=== PATIENT | male | born 1965 | race Caucasian/White ===

== ENCOUNTER 2018-03-20 18:14 | Emergency (ER) | payer BC, OTHER ==
[~2018-03-20] VITALS: Ht 170.2 cm; Wt 99.8 kg
[~2018-03-20 18:14] MED LIST: ASPIRIN; ATOR40TA PO; FLOMAX; LIPITOR; LISI5 PO; LISINOPRIL; MECL25 PO; OMEP20ER PO; ONDA4ODT MM; PROM25 PO
[2018-03-20 18:54] LABS: BASOPHILS ABSOLUTE AUTO 0.02 K/mm3 (0.00-0.23); BASOPHILS PERCENT AUTO 0 % (0-2); EOSINOPHILS PERCENT AUTO 0 % (0-6); Hematocrit 48.8 % (37.0-53.0); IMMATURE GRAN ABSOLUTE AUTO 0.03 K/mm3 (0.00-0.10); IMMATURE GRAN PERCENT AUTO 0 % (0-1); LYMPHOCYTES ABSOLUTE AUTO 1.17 K/mm3 (0.84-5.20); LYMPHOCYTES PERCENT AUTO 10 % (21-46); MONOCYTES ABSOLUTE AUTO 0.44 K/mm3 (0.16-1.47); MONOCYTES PERCENT AUTO 4 % (4-13); Mean Corpuscular HGB 30.3 pg (26.0-34.0); Mean Corpuscular HGB Conc 34.8 g/dL (31.5-36.5); Mean Corpuscular Volume 87 fL (80-100); Mean Platelet Volume 8.7 fL (9.1-12.4); NEUTROPHILS ABSOLUTE AUTO 10.23 K/mm3 (1.96-9.15); NEUTROPHILS PERCENT AUTO 86 % (41-73); Platelet Count 341 K/mm3 (150-400); RDW Standard Deviation 38.3 fL (35.1-46.3); Red Blood Cell Count 5.61 M/mm3 (4.30-5.90); White Blood Cell Count 11.89 K/mm3 (4.00-11.30)
[2018-03-20 19:29] LABS: Albumin, Blood 4.5 g/dL (3.4-5.0); Albumin/Globulin Ratio 1.1 (0.8-1.8); Bilirubin, Total 1.4 mg/dL (0.1-1.0); Bun/Creatinine Ratio 22.7 (12.0-20.0); Calcium, Blood 9.6 mg/dL (8.5-10.1); Creatinine, Blood 1.41 mg/dL (0.60-1.20); Globulin, Blood 4.1 g/dL (2.2-4.0); Potassium, Blood 4.6 mmol/L (3.5-5.5); Total Protein, Blood 8.6 g/dL (6.4-8.2)
[2018-03-20 19:32] LABS: Source, Urine Clean Catch
[2018-03-20 19:49] LABS: Appearance, Urine Hazy (Clear); Bilirubin, Urine Neg (Neg); Blood, Urine 1+ (Neg); Color, Urine Yellow (P-Yellow); Glucose Qualitative, Urine Neg (Neg); Ketones, Urine 2+ (Neg); Leukocyte Esterase, Urine 1+ (Neg); Nitrite, Urine Neg (Neg); Protein, Urine 2+ (Neg); Specific Gravity, Urine 1.025 (1.003-1.022); Urobilinogen, Urine NORM (Normal)
[2018-03-20 20:30] LABS: Amorphous Heavy (0-Heavy); Bacteria Not Seen /hpf; Red Blood Cells, Urine 50-100 /hpf (0-2); Squamous Epithelial Cells Not Seen /hpf (Few); White Blood Cells, Urine Not Seen /hpf (0-5)
[2018-03-20] MEDS ORDERED: Zofran Odt4 MG PO (21:16)
[2018-03-20] MEDS ORDERED: PHENERGAN25 MG PR (21:16)
== END 2018-03-20 21:41 | disposition home or self-care (01) ==
LOC: ER 18:14
PROVIDERS: Emergency Medicine
DX: R11.2 Nausea with vomiting, unspecified (principal); Z79.899 Other long term (current) drug therapy; K21.9 Gastro-esophageal reflux disease without esophagitis; F17.200 Nicotine dependence, unspecified, uncomplicated
CPT/HCPCS: 36415; 80053; 81001; 83690; 85025; 87086; 96361; 96374; 96375; 99283; J2405; J2550; J7030

== ENCOUNTER 2018-04-05 07:20 | Observation (INO) | payer BC, OTHER ==
[~2018-04-05] VITALS: Ht 170.2 cm; Wt 85.0 kg
[~2018-04-05 07:20] MED LIST changes: +PHENERGAN25 MG PR; +Zofran Odt4 MG PO
[2018-04-05 07:51] LABS: BASOPHILS ABSOLUTE AUTO 0.05 K/mm3 (0.00-0.23); BASOPHILS PERCENT AUTO 0 % (0-2); EOSINOPHILS PERCENT AUTO 0 % (0-6); Hematocrit 47.4 % (37.0-53.0); Hemoglobin 16.7 g/dL (13.5-17.5); IMMATURE GRAN ABSOLUTE AUTO 0.07 K/mm3 (0.00-0.10); IMMATURE GRAN PERCENT AUTO 1 % (0-1); LYMPHOCYTES ABSOLUTE AUTO 1.26 K/mm3 (0.84-5.20); LYMPHOCYTES PERCENT AUTO 8 % (21-46); MONOCYTES PERCENT AUTO 5 % (4-13); Mean Corpuscular HGB 30.8 pg (26.0-34.0); Mean Corpuscular HGB Conc 35.2 g/dL (31.5-36.5); Mean Corpuscular Volume 87 fL (80-100); Mean Platelet Volume 9.2 fL (9.1-12.4); NEUTROPHILS PERCENT AUTO 86 % (41-73); Platelet Count 295 K/mm3 (150-400); RDW Coefficient Variation 12.1 % (11.7-14.2); RDW Standard Deviation 38.6 fL (35.1-46.3); Red Blood Cell Count 5.43 M/mm3 (4.30-5.90); White Blood Cell Count 14.98 K/mm3 (4.00-11.30)
[2018-04-05 08:09] LABS: Alanine Aminotransfer (ALT/SGP 53 U/L (12-78); Albumin, Blood 4.4 g/dL (3.4-5.0); Alk Phos 83 U/L (50-136); Anion Gap 10 mmol/L (6-16); Aspartate Aminotrans (AST/SGOT 30 U/L (12-37); Bilirubin, Total 1.2 mg/dL (0.1-1.0); Blood Urea Nitrogen 21 mg/dL (8-24); CO2, Blood 25 mmol/L (21-32); Calcium, Blood 9.6 mg/dL (8.5-10.1); Chloride, Blood 105 mmol/L (98-108); Creatinine, Blood 1.31 mg/dL (0.60-1.20); Globulin, Blood 4.4 g/dL (2.2-4.0); Glomerular Filtration Rate >60 (60-); Glucose, Blood 136 mg/dL (70-99); Potassium, Blood 5.4 mmol/L (3.5-5.5); Sodium, Blood 140 mmol/L (136-145); Total Protein, Blood 8.8 g/dL (6.4-8.2)
[2018-04-05 09:58] LABS: U Amphetamine Screen Not Detected; U Barbituate Screen Not Detected; U Benzodiazapine Screen Not Detected; U Buprenorphine Screen Not Detected; U Cannabinoids Screen Not Detected; U Cocaine Screen Not Detected; U Methadone Screen Not Detected; U Methamphetamine Screen Not Detected; U Opiates Screen Not Detected; U Oxycodone Screen Not Detected; U Phencyclidine Screen Not Detected; U Propoxyphene Screen Not Detected
[2018-04-05 18:50] LABS: Source, Urine Voided
[2018-04-05 18:55] LABS: Bilirubin, Urine Neg (Neg); Blood, Urine 1+ (Neg); Glucose Qualitative, Urine Neg (Neg); Ketones, Urine Neg (Neg); Leukocyte Esterase, Urine Neg (Neg); Nitrite, Urine Neg (Neg); Protein, Urine Neg (Neg); Specific Gravity, Urine 1.025 (1.003-1.022); Urobilinogen, Urine NORM (Normal)
[2018-04-05 19:13] LABS: Appearance, Urine Clear (Clear); Color, Urine Yellow (P-Yellow)
[2018-04-05 19:14] LABS: Bacteria Not Seen /hpf; Red Blood Cells, Urine Not Seen /hpf (0-2); Squamous Epithelial Cells Not Seen /hpf (Few); White Blood Cells, Urine Not Seen /hpf (0-5)
[2018-04-06 05:02] LABS: Anion Gap 10 mmol/L (6-16); Blood Urea Nitrogen 21 mg/dL (8-24); Bun/Creatinine Ratio 17.9 (12.0-20.0); CO2, Blood 25 mmol/L (21-32); Calcium, Blood 8.7 mg/dL (8.5-10.1); Chloride, Blood 104 mmol/L (98-108); Creatinine, Blood 1.17 mg/dL (0.60-1.20); Glomerular Filtration Rate >60 (60-); Glucose, Blood 94 mg/dL (70-99); Potassium, Blood 3.9 mmol/L (3.5-5.5); Sodium, Blood 139 mmol/L (136-145)
== END 2018-04-06 12:07 | disposition home or self-care (01) ==
LOC: ER 07:20 → MEDS 07:21 → ER 09:53 → MEDS 09:59
PROVIDERS: Emergency Medicine; Internal Medicine; Internal Medicine Gastroenterology
PROC: 0DB98ZZ Excision of Duodenum, Via Natural or Artificial Opening Endoscopic (ICD-10-PCS; principal; 2018-04-06 07:30)
PROC: 0DB68ZX Excision of Stomach, Via Natural or Artificial Opening Endoscopic, Diagnostic (ICD-10-PCS; principal; 2018-04-06 07:30)
PROC: 0DBA8ZX Excision of Jejunum, Via Natural or Artificial Opening Endoscopic, Diagnostic (ICD-10-PCS; principal; 2018-04-06 07:30)
DX: K31.7 Polyp of stomach and duodenum (principal); E78.5 Hyperlipidemia, unspecified; K21.9 Gastro-esophageal reflux disease without esophagitis; N28.9 Disorder of kidney and ureter, unspecified; D72.829 Elevated white blood cell count, unspecified; R61 Generalized hyperhidrosis; Z87.891 Personal history of nicotine dependence; Z79.899 Other long term (current) drug therapy
CPT/HCPCS: 36415; 71046; 74176; 80048; 80053; 81001; 83690; 85025; 88305; 88342; 93005; 93010; G0378; J2405; J7030; J7120